=== PATIENT | male | born 1950 | race Caucasian/White ===

== ENCOUNTER 2021-10-14 06:56 | Day surgery (SDC) | payer BC ==
[2021-10-14] MEDS ORDERED: fentaNYL 100 MCG/2 ML SDV ONE (07:25)
[2021-10-14] MEDS ORDERED: Midazolam 1 MG/ML 2 ML SDV ONE (07:25)
[2021-10-14] MEDS ORDERED: Propofol 200 MG/20 ML SDV ONE (07:25)
[2021-10-14] MEDS ORDERED: Sodium Chloride 0.9% 1,000 ML IV SCH (07:30)
[2021-10-14] MEDS: Bupivacaine 0.5% 50 ML MDV ONE ×2 (07:50→08:55)
[2021-10-14] MEDS: Lidocaine 1% with EPINEPHrine 1:100,000 50 ML MDV ONE ×2 (07:51→08:55)
[2021-10-14] MEDS ORDERED: ceFAZolin 2 GM in Premix Bag 1 BAG IV ONE (08:15)
[2021-10-14] MEDS ORDERED: metroNIDAZOLE/Normal Saline 500 MG in Premix Bag 1 BAG IV ONE (08:15)
--- NOTE | 2021-10-14 10:41 | OR ---
DATE OF PROCEDURE: 10/14/2021 SURGEON: Skyler Smith MD PROCEDURE: Excision of subcutaneous tissue in the pilonidal area. COMPLICATIONS: None. DIRECTOR OF HOME CARE HOSPICE: None. ANESTHESIA: MAC. PREOPERATIVE DIAGNOSIS: A 70-year-old male who has had previous surgery in the pilonidal area, but has a spontaneous drainage of fluid. The patient states that he can palpate something, however, nothing is palpable aside from the coccyx. Therefore, we agreed to excise the area as there may be a remnant cyst or sinus tract not related to the GI tract. We also discussed we might remove normal tissue. We discussed infection, bleeding, injury to rectal tissue, and other risks not listed here. The patient understands these risks and wishes to proceed. POSTOPERATIVE DIAGNOSIS: A 70-year-old male who has had previous surgery in the pilonidal area, but has a spontaneous drainage of fluid. The patient states that he can palpate something, however, nothing is palpable aside from the coccyx. Therefore, we agreed to excise the area as there may be remnant cyst or sinus tract not related to the GI tract. We also discussed we might remove normal tissue. We discussed infection, bleeding, injury to rectal tissue, and other risks not listed here. The patient understands these risks and wishes to proceed. PROCEDURE IN DETAIL: The patient was placed in prone position. About 3 cm superior to the anus, the area which the patient had marked with me preoperatively was identified and anesthetized with 1% lidocaine. A single incision was made approximately 1.5 cm in size and the tissue below this was excised. There was no fistula tract. However, the patient states that up until approximately 5 days ago, there was one there. This tissue was excised and closed with 3-0 Vicryl and 4-0 Vicryl in interrupted running fashion. Dressings were applied. The patient tolerated the procedure well. Skyler Smith MD /[id number]
== END 2021-10-14 10:50 | disposition home or self-care (01) ==
LOC: JP.SDS 06:56
PROVIDERS: ATTEND Surgery
DX: L05.91 Pilonidal cyst without abscess (principal); I10 Essential (primary) hypertension; Z79.899 Other long term (current) drug therapy; Z79.82 Long term (current) use of aspirin; I25.10 Atherosclerotic heart disease of native coronary artery without angina pectoris; E11.9 Type 2 diabetes mellitus without complications; Z87.891 Personal history of nicotine dependence
CPT/HCPCS: 11770; J0690; J2250; J2704; J3010; J3490; J7030

== ENCOUNTER 2021-12-09 06:27 | Day surgery (SDC) | payer MEDICARE, BC ==
[2021-12-09] MEDS: Sodium Chloride 0.9% 1,000 ML IV SCH (07:01)
[2021-12-09] MEDS ORDERED: Midazolam 1 MG/ML 2 ML SDV ONE (07:08)
[2021-12-09] MEDS ORDERED: Propofol 200 MG/20 ML SDV ONE (07:08)
[2021-12-09] MEDS ORDERED: fentaNYL 100 MCG/2 ML SDV ONE (07:08)
== END 2021-12-09 08:58 | disposition home or self-care (01) ==
LOC: JP.SDS 06:27
PROVIDERS: ATTEND Surgery
DX: K51.40 Inflammatory polyps of colon without complications (principal); K63.5 Polyp of colon; K57.30 Diverticulosis of large intestine without perforation or abscess without bleeding; I25.10 Atherosclerotic heart disease of native coronary artery without angina pectoris; I10 Essential (primary) hypertension; E11.9 Type 2 diabetes mellitus without complications
CPT/HCPCS: 45380; 45385; 45390; J2250; J2704; J3010; J7030

== ENCOUNTER 2024-08-09 16:22 | Emergency (ER) | payer MEDICARE, BC | END 2024-08-09 17:28 | disposition home or self-care (01) | LOC: JP.ED 16:22 | DX: K64.4 Residual hemorrhoidal skin tags (principal); I10 Essential (primary) hypertension; I25.2 Old myocardial infarction; E78.00 Pure hypercholesterolemia, unspecified; I25.10 Atherosclerotic heart disease of native coronary artery without angina pectoris; Z79.82 Long term (current) use of aspirin; Z79.899 Other long term (current) drug therapy | CPT/HCPCS: 99282; 99283 ==

== ENCOUNTER 2024-09-30 07:36 | Day surgery (SDC) | payer MEDICARE, BC ==
[2024-09-30] MEDS ORDERED: Propofol 200 MG/20 ML SDV ONE (08:09)
[2024-09-30] MEDS ORDERED: fentaNYL 50 MCG/ML SDV ONE (08:09)
[2024-09-30] MEDS: Lactated Ringers 1,000 ML IV SCH (08:31)
[2024-09-30] MEDS: Sodium Chloride 0.9% 80 ML IV SCH (11:44)
[2024-09-30] MEDS: Sodium Chloride 0.9% 10 ML Syringe FLUSH ONE (11:44)
[2024-09-30] MEDS: Iopamidol 612 MG/ML 100 ML Bottle IV SCH (11:44)
== END 2024-09-30 12:15 | disposition home or self-care (01) ==
LOC: JP.SDS 07:36
PROVIDERS: ATTEND Family Medicine
DX: K62.89 Other specified diseases of anus and rectum (principal); K92.1 Melena; I10 Essential (primary) hypertension; E78.5 Hyperlipidemia, unspecified; I25.10 Atherosclerotic heart disease of native coronary artery without angina pectoris
CPT/HCPCS: 00811; 45331; 74177; 88305; J2704; J3010; J3490; J7120; Q9967